=== PATIENT | female | born 1995 | race Caucasian/White ===

== ENCOUNTER 2020-04-04 10:37 | Emergency (ER) | payer OTHER ==
[2020-04-04] MEDS ORDERED: ACETAMINOPHEN EXTRA STRENGTH 500 MG TABLET ONE (11:56)
[2020-04-04] MEDS ORDERED: ACETAMINOPHEN ELIXIR 325 MG/10.15ML UDCUP ONE (12:09)
[2020-04-04] MEDS ORDERED: DEXAMETHASONE SOD PHOSPHATE 10MG/ML 1ML VIAL ONE (14:14)
[2020-04-04] MEDS ORDERED: LIDOCAINE HCL-MPF 1% 2ML VIAL ONE (14:15)
[2020-04-04] MEDS ORDERED: CEFTRIAXONE SODIUM 1 GM ONE (14:15)
== END 2020-04-04 14:37 | disposition home or self-care (01) ==
LOC: EDH 10:37
DX: J02.9 Acute pharyngitis, unspecified (principal); Z20.828 Contact with and (suspected) exposure to other viral communicable diseases
CPT/HCPCS: 87426; 87880; 96372 ×2; 99284; J0696; J1100; J3490; U0003